=== PATIENT | female | born 1950 | race Caucasian/White ===

== ENCOUNTER 2022-02-26 11:01 | Emergency (ER) | payer MEDICARE, BC ==
[2022-02-26] MEDS ORDERED: Tetracaine 0.5% PF 4 ML BOT ONE (12:29)
[2022-02-26] MEDS ORDERED: Fluorescein Opthalmic Strip ONE (12:30)
[2022-02-26] MEDS ORDERED: Ketorolac Tromethamine 30 MG/ML VIAL ONE (13:19)
== END 2022-02-26 14:15 | disposition home or self-care (01) ==
LOC: CSHERS 11:01
DX: T26.62XA Corrosion of cornea and conjunctival sac, left eye, initial encounter (principal); I10 Essential (primary) hypertension
CPT/HCPCS: 96372; 99283; J1885

== ENCOUNTER 2022-03-05 09:33 | Outpatient (CLI) | payer MEDICARE, BC | END 2022-03-05 09:34 | disposition home or self-care (01) | LOC: CSHMAMMO 09:33 | PROVIDERS: ATTEND Internal Medicine | DX: Z12.31 Encounter for screening mammogram for malignant neoplasm of breast (principal); Z85.820 Personal history of malignant melanoma of skin; Z91.89 Other specified personal risk factors, not elsewhere classified | CPT/HCPCS: 77063; 77067 ==

== ENCOUNTER 2022-03-22 08:03 | Outpatient (CLI) | payer MEDICARE, BC ==
[2022-03-22] MEDS ORDERED: Iopamidol 300 61% 100 ML VIAL FS ONE (09:59)
[2022-03-22] MEDS ORDERED: Magnevist 469MG/ML 20 ML VIAL ONE (10:05)
== END 2022-03-22 08:04 | disposition home or self-care (01) ==
LOC: CSHCT 08:03
PROVIDERS: ATTEND Internal Medicine Medical Oncology
DX: C43.9 Malignant melanoma of skin, unspecified (principal); J90 Pleural effusion, not elsewhere classified; K76.9 Liver disease, unspecified
CPT/HCPCS: 70553; 71260; 74177; 82565

== ENCOUNTER 2022-04-30 07:20 | Outpatient (CLI) | payer MEDICARE, BC | END 2022-04-30 07:21 | disposition home or self-care (01) | LOC: CSHLAB 07:20 | PROVIDERS: ATTEND Internal Medicine Critical Care Medicine | DX: Z20.822 Contact with and (suspected) exposure to COVID-19 (principal) | CPT/HCPCS: 87811 ==

== ENCOUNTER 2022-05-05 08:48 | Outpatient (CLI) | payer MEDICARE, BC | END 2022-05-05 08:49 | disposition home or self-care (01) | LOC: CSHCP 08:48 | PROVIDERS: ATTEND Internal Medicine Critical Care Medicine | DX: M34.9 Systemic sclerosis, unspecified (principal); J98.4 Other disorders of lung; F17.210 Nicotine dependence, cigarettes, uncomplicated; R05.9 Cough, unspecified; R06.00 Dyspnea, unspecified | CPT/HCPCS: 94060; 94726; 94729; 94760 ==

== ENCOUNTER 2023-04-15 08:50 | Outpatient (CLI) | payer MEDICARE, BC ==
[2023-04-15] MEDS ORDERED: Iopamidol 300 61% 100 ML VIAL FS ONE (10:39)
[2023-04-15] MEDS ORDERED: Magnevist 469MG/ML 20 ML VIAL ONE (10:50)
== END 2023-04-15 08:51 | disposition home or self-care (01) ==
LOC: CSHCT 08:50
PROVIDERS: ATTEND Internal Medicine Medical Oncology
DX: C43.9 Malignant melanoma of skin, unspecified (principal); K76.9 Liver disease, unspecified; K76.89 Other specified diseases of liver; J90 Pleural effusion, not elsewhere classified; Z98.890 Other specified postprocedural states
CPT/HCPCS: 70553; 71260; 74177; 82565; A9579; Q9967

== ENCOUNTER 2024-03-20 07:55 | Outpatient (CLI) | payer MEDICARE | END 2024-03-20 07:56 | disposition home or self-care (01) | LOC: CSHCT 07:55 | PROVIDERS: ATTEND Internal Medicine | DX: C43.9 Malignant melanoma of skin, unspecified (principal) | CPT/HCPCS: 70553; 71260; 74177; 82565 ==

== ENCOUNTER 2024-04-09 08:27 | Outpatient (CLI) | payer BC, MEDICARE | END 2024-04-09 08:28 | disposition home or self-care (01) | LOC: CSHMAMMO 08:27 | PROVIDERS: ATTEND Internal Medicine | DX: Z12.31 Encounter for screening mammogram for malignant neoplasm of breast (principal); Z91.89 Other specified personal risk factors, not elsewhere classified; Z85.820 Personal history of malignant melanoma of skin | CPT/HCPCS: 77063; 77067 ==

== ENCOUNTER 2024-04-13 16:10 | Emergency (ER) | payer MEDICARE ==
[~2024-04-13 16:10] MED LIST: Iopamidol 300 61% 100 ML VIAL FS ONE
[2024-04-13] MEDS ORDERED: Acetaminophen 500 MG TAB ONE (16:52)
[2024-04-13 17:39] LABS: #Basophils 0.03 10x3/uL (0.0-0.2); #Eosinphils 0.04 10x3/uL (0.0-0.5); #Monocytes 0.81 10x3/uL (0.0-1.1); #Neutrophils 10.69 10x3/uL (1.5-8.4); %Basophils 0.2 % (0.0-2.0); %Eosinophils 0.3 % (0.0-6.0); %Lymphocytes 8.8 % (18.0-47.0); %Monocytes 6.3 % (0.0-10.0); %Neutrophils 83.9 % (40.0-75.0); Hematocrit 33.9 % (34.9-44.5); Hemoglobin 11.7 g/dL (12.0-15.5); Mean Corpuscular HGB CONC 34.5 g/dL (32.0-36.0); Mean Corpuscular Hemoglobin 32.9 pg (27.0-33.0); Mean Corpuscular Volume 95.2 fL (81.6-98.3); Mean Platelet Volume 9.3 fL (7.4-10.4); Platelet Count 211 10x3/uL (150-450); RBC Distribution Width 13.2 % (11.5-14.5); Red Blood Cell (RBC) Count 3.56 10x6/uL (3.90-5.03); White Blood Cell (WBC) Count 12.8 10x3/uL (3.5-10.5)
[2024-04-13 17:50] LABS: ALT (SGPT) 23 U/L (8-55); AST (SGOT) 26 U/L (5-34); Alkaline Phosphatase 43 U/L (40-110); Anion Gap 13 mmol/L (10-20); BUN (Urea Nitrogen) 18 mg/dL (9.8-20.1); Bilirubin, Total 0.4 mg/dL (0.2-1.2); Calc. Creatinine Clearance 0 mL/min (70-130); Calcium 9.4 mg/dL (7.8-10.44); Carbon Dioxide 24 mmol/L (23-31); Chloride 104 mmol/L (98-107); Estimated GFR 65; Globulin 2.8 g/dL (2.4-3.5); Glucose 146 mg/dL (83-110); Lipase 25 U/L (8-78); Potassium 3.6 mmol/L (3.5-5.1); Protein, Total 6.8 g/dL (5.8-8.1); Sodium 137 mmol/L (136-145)
[2024-04-13 17:58] LABS: Bilirubin Neg (Negative); Blood, Urine Negative (Negative); Clarity Clear (Clear); Glucose, Urine (Dipstick) Normal (Negative); Ketone, Urine Negative (Negative); Leukocyte Negative (Negative); Nitrite Negative (Negative); Protein, Urine (Dipstick) Negative (Neg-Trace); Specific Gravity, Urine 1.015 (1.005-1.030); Urobilinogen Normal mg/dL (Less than 2)
[2024-04-13 18:09] LABS: Bacteria/HPF 3+ HPF (None Seen); CAUTI Indications for Culture Dysuria,urgency,freq; RBC/HPF None Seen HPF (0-3); Squamous Epithelial 0-3 HPF (0-3); Transitional Epithelial 0-3 HPF (None Seen); WBC/HPF 0-3 HPF (0-3)
[2024-04-13 18:10] LABS: Urine Culture Reflex No No
== END 2024-04-13 19:10 | disposition home or self-care (01) ==
LOC: CSHERS 16:10
DX: K62.89 Other specified diseases of anus and rectum (principal); I10 Essential (primary) hypertension
CPT/HCPCS: 74177; 80053; 81001; 83605; 83690; 85025; Q9967; 51701

== ENCOUNTER 2025-04-10 08:40 | Outpatient (CLI) | payer MEDICARE | END 2025-04-10 08:41 | disposition home or self-care (01) | LOC: CSHMAMMO 08:40 | PROVIDERS: ATTEND Internal Medicine | DX: Z12.31 Encounter for screening mammogram for malignant neoplasm of breast (principal); N64.89 Other specified disorders of breast; R92.333 Mammographic heterogeneous density, bilateral breasts; Z80.3 Family history of malignant neoplasm of breast; Z91.89 Other specified personal risk factors, not elsewhere classified; Z85.820 Personal history of malignant melanoma of skin | CPT/HCPCS: 77063; 77067 ==